=== PATIENT | male | born 1945 | race Caucasian/White ===

== ENCOUNTER 2016-09-07 07:49 | Day surgery (SDC) | payer OTHER ==
[~2016-09-07] VITALS: Ht 177.8 cm; Wt 92.5 kg
[~2016-09-07 07:49] MED LIST: CEFAZOLIN SOD 1 GM/ ISO 50 ML PREMIX IV ONE
[2016-09-07 09:16] VITALS: O2SAT 100
[2016-09-07] MEDS ORDERED: POLYMYXIN 500,000/BACIT.10,000 UNITS in NS IRR 1 L IR ONE (09:50)
[2016-09-07] MEDS ORDERED: LR 1,000 ML IV SCH (10:04)
[2016-09-07] MEDS ORDERED: HYDROmorphone 1 MG INJ. 1 MG/ML AMPUL IVP PRN (10:15)
[2016-09-07] MEDS ORDERED: ONDANSETRON HCL 4 MG/2 ML VIAL IVP PRN ×2 (10:15→10:45)
[2016-09-07] MEDS ORDERED: MEPERIDINE HCL/PF 25 MG/ML DISP.SYRIN IVP PRN ×2 (10:15)
[2016-09-07] MEDS ORDERED: HYDROmorphone 2 MG/ML VIAL IVP PRN ×3 (10:15→10:45)
[2016-09-07] MEDS ORDERED: NACL 0.9% 1,000 ML IV SCH (10:44)
[2016-09-07] MEDS ORDERED: HYDROcodone/ACETAMIN 5-325 MG TAB (NORCO/ VICODIN) PO PRN ×2 (10:45)
[2016-09-07] MEDS ORDERED: MORPHINE 4 MG/ML INJ. SYRINGE IVP PRN (10:45)
[2016-09-07] MEDS ORDERED: ACETAMINOPHEN 325 MG TABLET PO PRN (10:45)
[2016-09-07 11:30] VITALS: BP 147/90; PULSE 62; RESP 14
[2016-09-07] MEDS ORDERED: ONDANSETRON HCL 4 MG/2 ML VIAL ONE (14:00)
[2016-09-07] MEDS ORDERED: KETOROLAC TROMETHAMINE 30 MG VIAL ONE (14:00)
[2016-09-07] MEDS ORDERED: fentaNYL CITRATE 250 MCG/5 ML AMP ONE (14:00)
[2016-09-07] MEDS ORDERED: ceFAZolin SODIUM 1 GM VIAL ONE (14:00)
[2016-09-07] MEDS ORDERED: NS 50 ML BAG IV ONE (14:00)
[2016-09-07] MEDS ORDERED: MIDAZOLAM HCL 5 MG/5 ML VIAL ONE (14:00)
[2016-09-07] MEDS ORDERED: PROPOFOL 200MG/ 20ML VIAL (DIPRIVAN) IV ONE (14:00)
[2016-09-07] MEDS ORDERED: SEVOFLURANE 15 MIN GAS INH ONE (14:00)
== END 2016-09-07 13:00 | disposition home or self-care (01) ==
LOC: SDS 07:49 → SMU 07:54 → EDSTATUS 10:00 → SDS 13:00
PROVIDERS: ATTEND Surgery
DX: K40.90 Unilateral inguinal hernia, without obstruction or gangrene, not specified as recurrent (principal)
CPT/HCPCS: 49505; 93005; C1781; J0690 ×2; J1885; J2250; J2405; J2704; J3010; J7120